=== PATIENT | male | born 1995 | race African-American/Black ===

== ENCOUNTER 2017-07-30 15:44 | Emergency (ER) | payer MEDICAID ==
[2017-08-02 21:08] LABS: CHLAMYDIA TRACHOMATIS, NAA Negative (Negative)
== END 2017-07-30 16:37 | disposition home or self-care (01) ==
LOC: D.ER 15:44
PROVIDERS: Nurse Practitioner Family
DX: Z02.9 Encounter for administrative examinations, unspecified (principal)